=== PATIENT | male | born 1975 | race Caucasian/White ===

== ENCOUNTER 2023-06-13 11:58 | Day surgery (SDC) | payer OTHER, SELFPAY ==
[2023-06-13] VITALS (7 sets, daily range): BP systolic 95–135; BP diastolic 59–83; PULSE 68–98; RESP 16–18; TEMP 36.1–36.6; O2SAT 96–100; BMI 31.4
[2023-06-13] MEDS: Lactated Ringers 1,000 ML 15 ML IV (12:30)
--- NOTE | 2023-06-13 12:36 | PCM.HP.STD ---
HPI - General General Date of Admission: 06/13/23 Date of Service: 06/13/23 Chief Complaint: Screening colonoscopy HPI Narrative DEAN CLARK, is a 47 M who presents today for screening colonoscopy. He has not had a colonoscopy in the past. He does not have any abdominal pain. He denies any nausea, vomiting or diarrhea. He denies any bleeding per rectum. Overall is in very good health. [facility] Medical History (Updated 06/09/23 @ 12:30 by Andra Sampson) Essential (primary) hypertension Gastric reflux History of echocardiogram Leg cramps Mild intermittent asthma Mixed hyperlipidemia Non-smoker Seasonal allergic rhinitis due to pollen Home Medications albuterol sulfate 90 mcg/actuation aerosol inhaler 2 puff inhalation Q4H PRN shortness of breath or wheezing 03/17/23 [History Last Taken Unknown] esomeprazole magnesium 40 mg capsule,delayed release (Nexium) 40 mg PO DAILY 03/17/23 [History Last Taken 06/13/23] lisinopril 20 mg tablet 20 mg PO DAILY 03/17/23 [History Last Taken 06/13/23] loratadine-pseudoephedrine ER 10 mg-240 mg tablet,extended [id number] (Allergy and Congestion Relief) 1 tab PO DAILY PRN allergy symptoms 03/17/23 [History Last Taken Unknown] Allergy/AdvReac Type Severity Reaction Status Date / Time bacitracin Allergy Hives Verified 06/13/23 12:23 [From Neosporin ([id number])] neomycin Allergy Hives Verified 06/13/23 12:23 [From Neosporin ([id number])] polymyxin B Allergy Hives Verified 06/13/23 12:23 [From Neosporin ([id number])] Surgical History (Updated 06/09/23 @ 12:30 by Andra Sampson) History of dental surgery Hx of rhinoplasty Social History (Updated 03/17/23 @ 09:47 by Kiana Astudillo) household members: spouse current occupational status: employed current occupation: Teacher, [employer] Smoking Status: Never smoker ROS Review of Systems ROS Unobtainable: other Constitutional Constitutional: Denies fatigue, fever(s), poor appetite, weight gain or weight loss ENT HEENT: Denies mouth lesions Cardiovascular Cardiovascular: Denies abdominal bloating, abdominal edema or abdominal pain Respiratory/Chest Respiratory/Chest: Denies change in mental status, change in phlegm color, chest congestion or chest tightness Gastrointestinal Gastrointestinal: Denies belching, bloating, change in bowel habits, change in stool character, chewing difficulty, coffee ground emesis, constipation, cramping, diarrhea, dyspepsia, dysphagia, early satiety, excessive flatus, fecal incontinence, heartburn, hematemesis, hematochezia, hemorrhoids, loose stools, melena, nausea, odynophagia, rectal bleeding, tenesmus, vomiting or weight changes Genitourinary Genitourinary: Denies abdominal discomfort, burning urination or itching Musculoskeletal Musculoskeletal: Reports as per HPI; Denies muscle weakness or myalgias Integumentary Integumentary: Denies jaundice Neurologic Neurologic: Denies lack of coordination or weakness Psychiatric Psychiatric: Denies confusion, depression, memory loss, mood swings, paranoia or suicidal ideation Endocrine Endocrinology: Denies systems reviewed and no addt'l complaints, except as documented Hematologic/Lymphatic Hematologic/Lymphatic: Denies anemia, easy bleeding, easy bruising or lymphadenopathy Allergic/Immunologic Allergic/Immunologic: Denies systems reviewed and no addt'l complaints, except as documented Vital Signs Vital Signs Vital Signs: 06/13/23 12:28 06/13/23 12:28 Temperature 97.5 F L Temperature Source Temporal Pulse Rate 74 Respiratory Rate 16 Respiratory Pattern Normal Blood Pressure 135/83 H Blood Pressure Mean 100 Blood Pressure Source Monitor Blood Pressure Position Semi-Fowlers Blood Pressure Location Left Arm Pulse Ox 99 Oxygen Delivery Method Room Air Weight Weight: 200 lb 9.93 oz Body Mass Index (BMI) 31.4 Physical Exam Const alert, oriented x3, no apparent distress, healthy appearing and well nourished General Appearance: cooperative, comfortable, well kempt and well developed Orientation / Consciousness: awake and oriented to person HEENT Head and Scalp: normocephalic and atraumatic Face and Sinus: normal facial exam Mouth: oral and palatal mucosa normal Eyes General Eye: normal appearance of both eyes Neck full ROM Lymph Lymphatic: no lymphadenopathy noted Chest inspection of chest normal Resp normal respiratory effort and no use of accessory muscles Cardio regular rate and regular rhythm GI normal to inspection, nondistended, normoactive bowel sounds, soft to palpation, non-tender, non-distended and no masses Auscultation: normoactive bowel sounds Palpation: soft Percussion: normal to percussion Rectal Exam: visual inspection normal and normal sphincter tone no CVA tenderness Back/Spine no CVA tenderness and normal ROM Extremity normal to inspection Peripheral Pulses: Yes pulses 2+ throughout Skin no rashes or lesions noted General Skin Exam: no breakdown, elasticity normal and turgor normal Neuro oriented x3 Motor Exam: strength 5/5 throughout Psych mental status grossly normal Appearance: grossly normal Attitude: calm Activity / Motor Behavior: appropriate eye contact Speech: normal speech Thought Process: normal thought process Thought Content: normal thought content Attention / Concentration: attention grossly intact Memory / Cognition: memory grossly intact Insight: insight good Judgement: judgement good Assessment & Plan Assessment/Plan (1) Encounter for screening for malignant neoplasm of colon: PLAN: Plan 47-year-old gentleman comes in for screening colonoscopy. He was explained alternatives, risk, benefits including not withstanding bleeding, infection, sepsis, perforation, need for emergent surgery . He will have an ASA of 2..
--- NOTE | 2023-06-13 13:14 | OP.COLON_ITS ---
Patient Name: Edgard Galaviz Procedure Date: 06/13/2023 12:40 PM Date of : 1975 Age: 47 Procedure: Colonoscopy Indications: Screening for colorectal malignant neoplasm Providers: Kam Ronquillo DO Medicines: Monitored Anesthesia Care Patient Profile: This is a 47 year old male. Refer to note in patient chart for documentation of history and physical. Last Colonoscopy: none. The patient's first colonoscopy is today. Complications: No immediate complications. Procedure: Pre-Anesthesia Assessment: - Prior to the procedure, a History and Physical was performed, and patient medications and allergies were reviewed. The patient is competent. The risks and benefits of the procedure and the sedation options and risks were discussed with the patient. All questions were answered and informed consent was obtained. Patient identification and proposed procedure were verified by the physician. Mental Status Examination: alert and oriented. Airway Examination: normal oropharyngeal airway and neck mobility. Respiratory Examination: clear to auscultation. CV Examination: normal. Prophylactic Antibiotics: The patient does not require prophylactic antibiotics. Prior Anticoagulants: The patient has taken no anticoagulant or antiplatelet agents. ASA Grade Assessment: II - A patient with mild systemic disease. After reviewing the risks and benefits, the patient was deemed in satisfactory condition to undergo the procedure. The anesthesia plan was to use monitored anesthesia care (MAC). Immediately prior to administration of medications, the patient was re-assessed for adequacy to receive sedatives. The heart rate, respiratory rate, oxygen saturations, blood pressure, adequacy of pulmonary ventilation, and response to care were monitored throughout the procedure. The physical status of the patient was re-assessed after the procedure. After I obtained informed consent, the scope was passed under direct vision. Throughout the procedure, the patient's blood pressure, pulse, and oxygen saturations were monitored continuously. The Colonoscope was introduced through the anus and advanced to the cecum, identified by appendiceal orifice and ileocecal valve. The colonoscopy was performed without difficulty. The patient tolerated the procedure well. The quality of the bowel preparation was adequate. The ileocecal valve, appendiceal orifice, and rectum were photographed. Scope In: 12:52:32 PM Scope Withdrawal Time 0 hours 9 minutes 30 seconds Scope Out: 1:04:39 PM Total Procedure Duration Time 0 hours 12 minutes 7 seconds Findings: The perianal and digital rectal examinations were normal. A few small-mouthed diverticula were found in the recto-sigmoid colon and sigmoid colon. A 5 mm polyp was found in the cecum. The polyp was sessile. The polyp was removed with a hot snare. Resection and retrieval were complete. Verification of patient identification for the specimen was done. Estimated blood loss was minimal. Impression: - Diverticulosis in the recto-sigmoid colon and in the sigmoid colon. - One 5 mm polyp in the cecum, removed with a hot snare. Resected and retrieved. Recommendation: - Repeat colonoscopy in 5 years for surveillance. - Continue present medications. Procedure Code(s): --- Professional --- 12001, Colonoscopy, flexible; with removal of tumor(s), polyp(s), or other lesion(s) by snare technique CPT copyright 2021 [employer]. All rights reserved. The codes documented in this report are preliminary and upon desk interviewer review may be revised to meet current compliance requirements. Kam Ronquillo DO 06/13/2023 1:14:32 PM This report has been signed electronically. Number of Addenda: 0 Note Initiated On: 06/13/2023 12:40 PM
--- NOTE | 2023-06-13 13:15 | COLBX_PTH ---
PATIENT: DEAN CLARK LOC: EN U#:[id number] AGE/SX: 47/M ROOM: RE06/13/[address]: Dr. Kam Ronquillo DO : 1975 BED: DIS: 06/13/2023 SPEC #: [id number] RECD: 06/13/23 14:17 STATUS: DION HERRERAIsrael #: [id number] NISSA: 06/13/23 13:[address]: Kam Ronquillo DEPT: SURGICAL PATHOLOGY RECD BY: Eliud Bains ENTERED: 06/14/23 08:28 SP TYPE: COLON BX OTHR DR: Dr. Nikunj Haynes MD Tissues: Cecum, NOS Procedures: Surgery Specimen Level IV HEADER OPERATION: Colonoscopy - open access (MAC), polypectomy PRE-OP DIAGNOSIS: Screening TISSUE SUBMITTED: Cecal polyp MICROSCOPIC DIAGNOSIS Cecal polyp, biopsy: Fragment of benign colonic mucosa. See comment. AM:mike 06/15/2023 COMMENT Neither hyperplastic nor adenomatous change is identified. Clinical correlation is suggested. MICROSCOPIC DESCRIPTION Slides are reviewed. GROSS DESCRIPTION Received in fixative is one container labeled with the patient's name and designated cecal polyp. The specimen consists of one irregular fragment of light herrera soft tissue that measures 0.1 x <0.1 x <0.1 cm. The specimen is totally submitted in one cassette. / AM:mike 06/14/2023 TC:5 CPT: 98159
== END 2023-06-13 14:00 | disposition home or self-care (01) ==
LOC: EN 12:10 → AC 12:10
PROVIDERS: PCP Family Medicine; Referring Provider Family Medicine; Visit Provider Internal Medicine Gastroenterology
PROC: 0DJD8ZZ Inspection of Lower Intestinal Tract, Via Natural or Artificial Opening Endoscopic (ICD-10-PCS; CPT 45378; principal; 2023-06-13 13:10)
DX: Z12.11 Encounter for screening for malignant neoplasm of colon (principal); K57.30 Diverticulosis of large intestine without perforation or abscess without bleeding; K63.5 Polyp of colon; E78.2 Mixed hyperlipidemia; I10 Essential (primary) hypertension; K21.9 Gastro-esophageal reflux disease without esophagitis; J45.20 Mild intermittent asthma, uncomplicated
CPT/HCPCS: 45385; 88305; J7120; J2405